=== PATIENT | female | born 1995 | race African-American/Black ===

== ENCOUNTER 2018-05-09 21:43 | Emergency (ER) | payer OTHER ==
[2018-05-09 22:26] VITALS: BP 136/88; PULSE 73; TEMP 98; BMI 22.8
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
[2018-05-10] MEDS ORDERED: IBUPROFEN 600 MG TABLET (FP) PO ONE (01:01)
[2018-05-10] MEDS ORDERED: IBUPROFEN 400 MG TABLET (FP) PO ONE (01:18)
== END 2018-05-10 01:42 | disposition home or self-care (01) ==
LOC: JER 21:43
DX: S49.82XA Other specified injuries of left shoulder and upper arm, initial encounter (principal); V68.0XXA Driver of heavy transport vehicle injured in noncollision transport accident in nontraffic accident, initial encounter; Y92.414 Local residential or business street as the place of occurrence of the external cause; Y99.0 Civilian activity done for income or pay; Y93.89 Activity, other specified
CPT/HCPCS: 73030-TC-LT-FY; 84703; 99283-25

== ENCOUNTER 2022-03-15 05:19 | Emergency (ER) | payer OTHER ==
[2022-03-15] MEDS ORDERED: ACETAMINOPHEN 325 MG TABLET (FP) PO ONE (05:47)
[2022-03-15] MEDS ORDERED: LIDOCAINE 5% TOPICAL PATCH TP ONE (05:47)
[2022-03-15 06:00] VITALS: BP 148/92; PULSE 79; RESP 20; TEMP 98.6; BMI 28.4
[2022-03-15] MEDS ORDERED: ACETAMINOPHEN 325 MG TABLET (FP) ONE (06:00)
[2022-03-15] MEDS ORDERED: LIDOCAINE 5% TOPICAL PATCH ONE (06:01)
[2022-03-15] MEDS ORDERED: LIDOCAINE PATCH REMOVAL MC ONE (18:00)
== END 2022-03-15 08:05 | disposition home or self-care (01) ==
LOC: JER 05:19
DX: R20.2 Paresthesia of skin (principal)
CPT/HCPCS: 99283-25